=== PATIENT | female | born 1955 | race Caucasian/White ===

== ENCOUNTER 2016-10-14 16:05 | Emergency (ER) | payer OTHER ==
[~2016-10-14] VITALS: Ht 157.5 cm; Wt 93.5 kg
[~2016-10-14 16:05] MED LIST: BEN25 PO; BENZ100C70 PO; GUAI120S26 PO
[2016-10-14 16:06] VITALS: Ht 157.5 cm; Wt 93.5 kg
--- NOTE | 2016-10-14 16:28 | ERD ---
ER Documentation Chief Complaint Date/Time DATE: 10/14/16 TIME: 16:26 Chief Complaint right leg pain x 2 weeks HPI 61-year-old female history of obesity comes emergency department with right- sided leg pain, varicose veins bilaterally coming in for rule out DVT from her primary care doctor. Pain is in the upper leg on the right side. She states that she did have some swelling to the area. She has varicose veins bilaterally. Patient states [place] she has never had a DVT, does not take any exogenous steroids, denies immobility, denies any recent surgeries or malignancies. ROS All systems reviewed and are negative except as per history of present illness. Medications Home Meds Active Scripts Zcvxtvpqcnt-I-Hyqmousbir Hb* (Guaifenesin* DM Syrup) 120 Ml Syrup, 10 ML PO Q4H Y for COUGH, #120 ML Prov:IVY HARRISON PA-C 04/19/16 Diphenhydramine Hcl* (Benadryl*) 25 Mg Cap, 25 MG PO Q6 Y for qhs, #15 CAP Prov:IVY HARRISON PA-C 04/19/16 Benzonatate* (Tessalon Perle*) 100 Mg Capsule, 100 MG PO Q8H Y for COUGH, #20 CAP Prov:IVY HARRISON PA-C 04/19/16 Allergies Allergies: Coded Allergies: No Known Allergy (Unverified , 04/19/16) PMhx/Soc History of Surgery: Yes (bladder surgery) Hx Alcohol Use: No Hx Substance Use: No Hx Tobacco Use: No Physical Exam Vitals Vital Signs Date Time Temp Pulse Resp B/P Pulse Ox O2 Delivery O2 Flow Rate FiO2 10/14/16 16:06 97.9 74 20 147/84 99 Physical Exam General: Well-developed, well-nourished. The patient appears in no acute distress. HEENT: Head is normocephalic, atraumatic. No scleral icterus. Neck: Supple. Nontender. Lungs: Clear to auscultation. Normal air movement. Heart: Regular rate and rhythm. S1 and S2 are normal. No murmurs, gallops, or rubs. Abdomen: Soft, nontender, nondistended. Bowel sounds are normoactive. Extremities: Varicose veins bilaterally to lower extremities. There is swelling to the upper leg on the right side. No erythema, no warmth. Patient' s dorsalis pedis pulses 2+ bilaterally. Skin is warm. Neurologic: Alert and oriented 3. No focal deficits. Skin: Normal turgor. No rash or lesions. Results 24 hrs PROCEDURE: Ultrasound of the bilateral lower extremity venous system. CLINICAL INDICATION: Bilateral leg pain and swelling, deep venous thrombosis TECHNIQUE: Guzman scale with and without compression, color doppler, spectral doppler of the venous system of the bilateral lower extremities was performed. Venous augmentation maneuvers were utilized. COMPARISON: No prior studies are available for comparison. FINDINGS: RIGHT: Common femoral vein: Patent. Femoral vein: Patent. Popliteal vein: Patent. Calf veins: Patent. No soft tissue abnormalities are identified. LEFT: Common femoral vein: Patent. Femoral vein: Patent. Popliteal vein: Patent. Calf veins: Patent. No soft tissue abnormalities are identified. IMPRESSION: No evidence of a deep vein thrombosis within the bilateral lower extremities. RPTAT: AADD .Ricardo Schrader MD, MD Date Time Electronically viewed and signed by .Ricardo Schrader MD, MD on 10/14/2016 17:32 .B/ Procedures/MDM 61-year-old female comes with bilateral lower extremity rule out DVT for primary care doctor. She comes in right leg pain, likely secondary to varicose veins. There is no evidence of DVT, no arterial injury, and doubt fracture, any infectious origin. There is no limb threatening process and patient will be given a copy of her ultrasound findings be follow-up with her primary care doctor. She was advised to apply compression stockings, elevate extremities at night. Patient's blood pressure was elevated (>120/80) but appears stable without evidence of hypertension emergency or urgency. The patient was counseled about the risks of hypertension and urged to pursue outpatient monitoring and therapy within a week with their primary care physician. Departure Diagnosis: Primary Impression: Varicose vein of leg Additional Impression: Pain of right leg Condition: BONITA Ramirez PA-C Oct 14, 2016 16:28
--- NOTE | 2016-10-14 17:33 | RADRPT ---
PROCEDURE: Ultrasound of the bilateral lower extremity venous system. CLINICAL INDICATION: Bilateral leg pain and swelling, deep venous thrombosis TECHNIQUE: Guzman scale with and without compression, color doppler, spectral doppler of the venous system of the bilateral lower extremities was performed. Venous augmentation maneuvers were utilized . COMPARISON: No prior studies are available for comparison. FINDINGS: RIGHT: Common femoral vein: Patent. Femoral vein: Patent. Popliteal vein: Patent. Calf veins: Patent. No soft tissue abnormalities are identified. LEFT: Common femoral vein: Patent. Femoral vein: Patent. Popliteal vein: Patent. Calf veins: Patent. No soft tissue abnormalities are identified. IMPRESSION: No evidence of a deep vein thrombosis within the bilateral lower extremities. RPTAT: AADD .Ricardo Schrader MD, MD Date Time Electronically viewed and signed by .Ricardo Schrader MD, on 10/14/2016 17:32 .B/
== END 2016-10-14 18:12 | disposition home or self-care (01) ==
LOC: FTE 16:05
DX: I83.91 Asymptomatic varicose veins of right lower extremity (principal)
CPT/HCPCS: 93970